=== PATIENT | female | born 1990 | race Caucasian/White ===

== ENCOUNTER 2018-09-12 20:04 | Emergency (ER) | payer OTHER ==
[2018-09-12] MEDS ORDERED: ONDANSETRON ODT 4 MG TAB (6 TAB/ER DISP) PO PRN (21:36)
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
[2018-09-12 22:10] VITALS: BP 129/81
== END 2018-09-12 22:10 | disposition home or self-care (01) ==
LOC: ER 20:04
DX: M54.2 Cervicalgia (principal); M25.512 Pain in left shoulder; R11.0 Nausea; V87.7XXA Person injured in collision between other specified motor vehicles (traffic), initial encounter
CPT/HCPCS: 99283

== ENCOUNTER 2018-09-13 17:18 | Emergency (ER) | payer OTHER ==
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
[2018-09-13 18:23] LABS: ABSOLUTE BASOPHILS # (AUTO) 0.1 10^3/uL (0.0-0.2); ABSOLUTE EOSINOPHILS # (AUTO) 0.1 10^3/uL (0.0-0.6); ABSOLUTE LYMPHOCYTES (AUTO) 2.3 10^3/uL (0.5-4.7); ABSOLUTE MONOCYTES (AUTO) 0.5 10^3/uL (0.1-1.4); ABSOLUTE NEUT (AUTO) 5.5 10^3/uL (1.7-8.2); BASOPHILS % (AUTO) 1.1 % (0-2); EOSINOPHILS % (AUTO) 1.6 % (0-6); HEMATOCRIT 39.9 % (36.0-47.0); HEMOGLOBIN 13.9 g/dL (12.0-15.5); LYMPHOCYTES % (AUTO) 26.6 % (13-45); MEAN CORPUSCULAR HEMOGLOBIN 32.2 pg (27.0-33.4); MEAN CORPUSCULAR HGB CONC 34.9 g/dL (32.0-36.0); MEAN CORPUSCULAR VOLUME 92 fl (80-97); MONOCYTES % (AUTO) 6.4 % (3-13); PLATELET COUNT 437 10^3/uL (150-450); RED BLOOD COUNT 4.33 10^6/uL (3.72-5.28); RED CELL DISTRIBUTION WIDTH 12.6 % (11.5-14.0); SEGMENTED NEUTROPHILS % (AUTO) 64.3 % (42-78); TOTAL CELLS COUNTED % (AUTO) 100 %; WHITE BLOOD COUNT 8.6 10^3/uL (4.0-10.5)
[2018-09-13 18:32] LABS: APPEARANCE,URINE SLIGHTLY-CLOUDY; BILIRUBIN,URINE NEGATIVE (NEGATIVE); COLOR,URINE YELLOW; GLUCOSE, URINE NEGATIVE (NEGATIVE); KETONES,URINE NEGATIVE (NEGATIVE); LEUKOCYTE ESTERASE,URINE SMALL (NEGATIVE); NITRITE,URINE NEGATIVE (NEGATIVE); PROTEIN,URINE NEGATIVE (NEGATIVE); URINE SPECIFIC GRAVITY 1.012; UROBILINOGEN,URINE NEGATIVE mg/dL (<2.0)
[2018-09-13] MEDS ORDERED: METOCLOPRAMIDE HCL INJ/PF 10 MG/2 ML SDV IV ONE (19:09)
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
--- NOTE | 2018-09-13 19:13 | RADIOLOGY REPORT (SQ) ---
EXAM DESCRIPTION: CT HEAD WITHOUT COMPLETED DATE/TIME: 09/13/2018 7:01 pm REASON FOR STUDY: facial numbness COMPARISON: None. TECHNIQUE: Axial images acquired through the brain without intravenous contrast. Images reviewed wi th bone, brain and subdural windows. Images stored on PACS. All CT scanners at this facility use dose modulation, iterative reconstruction, and/or weight based d osing when appropriate to reduce radiation dose to as low as reasonably achievable (ALARA). [facility]: Dose Right [facility]: CareDose [facility]: Dose Right [facility]: Teradose 4D [facility]: [place] RADIATION DOSE: CT Rad equipment meets quality standard of care and radiation dose reduction techniq ues were employed. CTDIvol: 53.2 mGy. DLP: 1044 mGy-cm. mGy. LIMITATIONS: None. FINDINGS: VENTRICLES: Normal size and contour. CEREBRUM: No masses. No hemorrhage. No midline shift. No evidence for acute infarction. Normal gra y/white matter differentiation. No areas of low density in the white matter. CEREBELLUM: No masses. No hemorrhage. No alteration of density. No evidence for acute infarction. EXTRAAXIAL SPACES: No fluid collections. No masses. ORBITS AND GLOBE: No intra- or extraconal masses. Normal contour of globe without masses. CALVARIUM: No fracture. PARANASAL SINUSES: No fluid or mucosal thickening. SOFT TISSUES: No mass or hematoma. OTHER: No other significant finding. IMPRESSION: No acute intracranial findings. EVIDENCE OF ACUTE STROKE: NO. COMMENT: Quality ID # [id number]: Final reports with documentation of one or more dose reduction techniques (e.g., Automated exposure control, adjustment of the mA and/or kV according to patient size, use of iterative reconstruction technique) TECHNICAL DOCUMENTATION: JOB ID: [id number] 2010 [employer]- All Rights Reserved Reading location - IP/workstation name: [employer]
[2018-09-13 19:47] VITALS: BP 120/86
--- NOTE | 2018-09-13 22:03 | EKG REPORT ---
SEVERITY:- NORMAL ECG - SINUS RHYTHM : Confirmed by: Sandy Mackey MD 13-Sep-2018 22:02:44
== END 2018-09-13 19:47 | disposition home or self-care (01) ==
LOC: ER 17:18
DX: R20.2 Paresthesia of skin (principal); R51 Headache; V49.40XA Driver injured in collision with unspecified motor vehicles in traffic accident, initial encounter; R20.0 Anesthesia of skin; R25.3 Fasciculation; R25.2 Cramp and spasm; Z88.6 Allergy status to analgesic agent
CPT/HCPCS: 93005; 99284; 96374; 36415; 85025; 81025; 81001; 70450; 93010; J2765

== ENCOUNTER 2020-05-26 15:03 | Emergency (ER) | payer OTHER ==
--- NOTE | 2020-05-26 16:04 | ER Document Report ---
ED Medical Screen (RME) - General Chief Complaint: Vag Bleeding, +preg <12wks Stated Complaint: ABDOMINAL PAIN, VAGINAL BLEEDING Time Seen by Provider: 05/26/20 16:02 Mode of Arrival: Wheelchair Information source: Patient Notes: 29-year-old female presented to ED for vaginal bleeding pelvic pain passing tissue. She states she took multiple home test and they were positive and then she started passing blood and tissue today. She has not had any visits for . She is 1 para 0. Last menstrual cycle was April 01. She states she does not smoke drink or use any illicit drugs. I have greeted and performed a rapid initial assessment of this patient. A comprehensive ED assessment and evaluation of the patient, analysis of test results and completion of medical decision making process will be conducted by an additional ED providers. TRAVEL OUTSIDE OF THE [place] IN LAST 30 DAYS: No - Related Data Allergies/Adverse Reactions: ibuprofen Allergy (Verified 09/13/18 17:19) Past Medical History Renal/ Medical History: Denies: Hx Peritoneal Dialysis Psychiatric Medical History: Reports: Hx Depression Past Surgical History: Reports: Hx Orthopedic Surgery - MRSA in knee Physical Exam - Vital signs Vitals: Temp Pulse Resp BP Pulse Ox 98.2 F 84 16 115/63 98 05/26/20 15:10 05/26/20 15:10 05/26/20 15:10 05/26/20 15:10 05/26/20 15:10 Course - Vital Signs Vital signs: Temp Pulse Resp BP Pulse Ox 98.2 F 84 16 115/63 98 05/26/20 15:10 05/26/20 15:10 05/26/20 15:10 05/26/20 15:10 05/26/20 15:10
[2020-05-26 16:35] LABS: ABSOLUTE BASOPHILS # (AUTO) 0.1 10^3/uL (0.0-0.2); ABSOLUTE EOSINOPHILS # (AUTO) 0.2 10^3/uL (0.0-0.6); ABSOLUTE LYMPHOCYTES (AUTO) 1.5 10^3/uL (0.5-4.7); ABSOLUTE MONOCYTES (AUTO) 0.6 10^3/uL (0.1-1.4); ABSOLUTE NEUT (AUTO) 5.3 10^3/uL (1.7-8.2); BASOPHILS % (AUTO) 1.2 % (0-2); EOSINOPHILS % (AUTO) 2.2 % (0-6); HEMATOCRIT 40.9 % (36.0-47.0); MEAN CORPUSCULAR HGB CONC 34.3 g/dL (32.0-36.0); MEAN CORPUSCULAR VOLUME 93 fl (80-97); MONOCYTES % (AUTO) 7.5 % (3-13); PLATELET COUNT 390 10^3/uL (150-450); RED BLOOD COUNT 4.38 10^6/uL (3.72-5.28); RED CELL DISTRIBUTION WIDTH 12.6 % (11.5-14.0); SEGMENTED NEUTROPHILS % (AUTO) 69.1 % (42-78); TOTAL CELLS COUNTED % (AUTO) 100 %; WHITE BLOOD COUNT 7.6 10^3/uL (4.0-10.5)
[2020-05-26 16:45] LABS: ALBUMIN 4.6 g/dL (3.5-5.0); ALKALINE PHOSPHATASE 133 U/L (38-126); ANION GAP 7 (5-19); ASPARTATE AMINO TRANSFERASE 26 U/L (14-36); BILIRUBIN,TOTAL 0.4 mg/dL (0.2-1.3); BLOOD UREA NITROGEN 13 mg/dL (7-20); CALCIUM 9.6 mg/dL (8.4-10.2); CARBON DIOXIDE 26 mmol/L (22-30); CHLORIDE 105 mmol/L (98-107); GLUCOSE 103 mg/dL (75-110); POTASSIUM 4.2 mmol/L (3.6-5.0); TOTAL PROTEIN 7.4 g/dL (6.3-8.2)
[2020-05-26 16:56] LABS: APPEARANCE,URINE CLEAR; BILIRUBIN,URINE NEGATIVE (NEGATIVE); COLOR,URINE RED; GLUCOSE, URINE >=500 mg/dL (NEGATIVE); KETONES,URINE NEGATIVE (NEGATIVE); LEUKOCYTE ESTERASE,URINE NEGATIVE (NEGATIVE); NITRITE,URINE NEGATIVE (NEGATIVE); PROTEIN,URINE NEGATIVE (NEGATIVE); URINE SPECIFIC GRAVITY 1.005; UROBILINOGEN,URINE NEGATIVE mg/dL (<2.0)
--- NOTE | 2020-05-26 18:06 | ER Document Report ---
ED GI/ - General Chief Complaint: Vag Bleeding, +preg <12wks Stated Complaint: ABDOMINAL PAIN, VAGINAL BLEEDING Time Seen by Provider: 05/26/20 16:02 Primary Care Provider: MENDY BRITT MD [ACTIVE STAFF] - Follow up tomorrow (Need repeat hCG in 48 hours) Mode of Arrival: Wheelchair Information source: Patient Notes: 29-year-old female with no previous medical problems presents to the emergency room complaining of abdominal cramping and bleeding that started last night. States she was passing a lot of clots later today.. States she only went through 2 sanitary napkins yesterday and is only lightly bleeding at this time. States she took Tylenol earlier today. She is a 1. States she did 2 home test yesterday that were positive. Menstrual cycle was April 01. Sexually active not use anything for control. No OB care. TRAVEL OUTSIDE OF THE [place] IN LAST 30 DAYS: No - Related Data Allergies/Adverse Reactions: ibuprofen Allergy (Verified 09/13/18 17:19) Past Medical History - General Information source: Patient - Social History Smoking Status: Never Smoker Frequency of alcohol use: None Drug Abuse: None Family History: Reviewed & Not Pertinent Renal/ Medical History: Denies: Hx Peritoneal Dialysis Psychiatric Medical History: Reports: Hx Depression Past Surgical History: Reports: Hx Orthopedic Surgery - MRSA in knee Review of Systems - Review of Systems Constitutional: No symptoms reported Cardiovascular: No symptoms reported Respiratory: No symptoms reported Gastrointestinal: Abdominal pain Female Genitourinary: , Vaginal bleeding Skin: No symptoms reported Hematologic/Lymphatic: No symptoms reported Neurological/Psychological: No symptoms reported -: Yes All other systems reviewed and negative Physical Exam - Vital signs Vitals: Temp Pulse Resp BP Pulse Ox 98.2 F 84 16 115/63 98 05/26/20 15:10 05/26/20 15:10 05/26/20 15:10 05/26/20 15:10 05/26/20 15:10 - General General appearance: Appears well, Alert In distress: Mild - HEENT Head: Normocephalic, Atraumatic Eyes: Normal Pupils: PERRL - Respiratory Respiratory status: No respiratory distress Chest status: Nontender Breath sounds: Normal Chest palpation: Normal - Cardiovascular Rhythm: Regular Heart sounds: Normal auscultation Murmur: No - Back Back: Normal, Nontender. No: CVA tenderness - Neurological Neuro grossly intact: Yes Cognition: Normal Orientation: AAOx4 [place] Coma Scale Eye Opening: Spontaneous [place] Coma Scale Verbal: Oriented Estefani Coma Scale Motor: Obeys Commands [place] Coma Scale Total: 15 Speech: Normal Motor strength normal: LUE, RUE, LLE, RLE Sensory: Normal - Skin Skin Temperature: Warm Skin Moisture: Dry Skin Color: Normal Course - Re-evaluation Re-evalutation: 05/26/20 19:00 Reviewed all lab and ultrasound results with patient and family. Counseled that there was no intrauterine seen on her ultrasound. Counseled her that she most likely has had a miscarriage. Counseled on need for repeat hCG in 48 hours to confirm. If unable to start appointment with the on-call [employer] counseled to the emergency room in 48 hours for repeat hCG. Patient was given on-call [employer]. She can take Tylenol as needed for pain. Patient was given strict return to the emergency room guidelines. Return for any new or worsening symptoms. All questions were answered. Patient verbalized understanding and agrees with plan of care. 05/26/20 19:02 - Vital Signs Vital signs: Temp Pulse Resp BP Pulse Ox 97.9 F 72 17 103/64 100 05/26/20 19:42 05/26/20 19:42 05/26/20 19:42 05/26/20 19:42 05/26/20 19:42 - Laboratory Result Diagrams: 05/26/20 16:11 05/26/20 16:11 Laboratory results interpreted by me: 05/26/20 05/26/20 16:11 16:11 Alkaline Phosphatase 133 H Beta HCG, Quant 678.56 H Urine Glucose (UA) >=500 H Urine Blood LARGE H - Diagnostic Test Radiology reviewed: Reports reviewed Discharge - Discharge Clinical Impression: Threatened miscarriage Condition: Stable Disposition: HOME, SELF-CARE Instructions: Threatened Miscarriage ([facility]) Additional Instructions: Take Tylenol as needed for pain. Repeat hCG in 48 hours. Can return to the emergency room if unable to get appointment with [facility]. Return sooner for any new or worsening symptoms. Forms: Return to Work Referrals: MENDY BRITT MD [ACTIVE STAFF] - Follow up tomorrow (Need repeat hCG in 48 hours)
--- NOTE | 2020-05-26 18:20 | RADIOLOGY REPORT (SQ) ---
EXAM DESCRIPTION: U/S OB TRANSVAG W/DOPPLER IMAGES COMPLETED DATE/TIME: 05/26/2020 5:34 pm REASON FOR STUDY: Pelvic pain vaginal bleeding possible miscarriage COMPARISON: None. TECHNIQUE: Transvaginal static and realtime grayscale images acquired of the pelvis. Additional anel cted spectral and color Doppler images recorded. All images stored on PACs. [facility] CLINICAL DATES: LMP 04/01/2020 7 weeks 6 days LIMITATIONS: None. FINDINGS: There is no intrauterine gestation at this time. UTERUS: No masses. No anomalies. Endometrium 6 mm. There is some fluid in the endometrial canal. CERVICAL LENGTH: 2.3 cm. Closed. RIGHT ADNEXA: Normal ovary with normal vascular flow. 2.8 x 1.8 x 2.1 cm. No adnexal free fluid. No adnexal masses. LEFT ADNEXA: Normal ovary with normal vascular flow. 3.5 x 2.3 x 2 cm. No adnexal free fluid. No adnexal masses. FREE FLUID: None. OTHER: No other significant finding. IMPRESSION: Miscarriage. There is no intrauterine gestation at this time. Follow-up as clinically indicated. TECHNICAL DOCUMENTATION: JOB ID: [id number] 2010 [employer]- All Rights Reserved Reading location - IP/workstation name: [email or web address]
[2020-05-26] MEDS ORDERED: ACETAMINOPHEN 325 MG TABLET PO ONE (18:57)
[2020-05-26 19:43] VITALS: BP 103/64
== END 2020-05-26 19:43 | disposition home or self-care (01) ==
LOC: ER 15:03
DX: O20.9 Hemorrhage in early pregnancy, unspecified (principal); O26.891 Other specified pregnancy related conditions, first trimester; R10.9 Unspecified abdominal pain; Z3A.01 Less than 8 weeks gestation of pregnancy
CPT/HCPCS: 36415; 76817; 80053; 81001; 84702; 85025; 86900; 86901; 87086; 93976; 99284

== ENCOUNTER 2020-05-29 13:39 | Emergency (ER) | payer SELFPAY ==
--- NOTE | 2020-05-29 14:09 | ER Document Report ---
ED Medical Screen (RME) - General Chief Complaint: OB Problem (<20wks) Stated Complaint: OB PROBLEM Time Seen by Provider: 05/29/20 14:03 Mode of Arrival: Ambulatory Information source: Patient Notes: HPI; 29-year-old female presents to the emergency room for follow-up secondary to possible miscarriage. Patient has been bleeding since last Saturday. She was seen here 3 days ago with a low quant and ultrasound inconclusive. Patient returns for her repeat quant however she is still bleeding and going through approximately 4 pads a day. States she feels weak. Decreased appetite. PE: Alert and oriented x3. Mild distress noted. Pale appearing lungs: Clear to auscultation without rales, rhonchi, wheezes. Heart: Regular rate rhythm without murmurs, rubs, gallops. Unable to do full assessment in triage. I have greeted and performed a rapid initial assessment of this patient. A comprehensive ED assessment and evaluation of the patient, analysis of test results and completion of the medical decision making process will be conducted by additional ED providers. I have specifically instructed the patient or family members with the patient to immediately return to any nursing staff should anything change in the patient's condition or with their chief complaint. TRAVEL OUTSIDE OF THE [place] IN LAST 30 DAYS: No - Related Data Allergies/Adverse Reactions: ibuprofen Allergy (Verified 09/13/18 17:19) Past Medical History Renal/ Medical History: Denies: Hx Peritoneal Dialysis Psychiatric Medical History: Reports: Hx Depression Past Surgical History: Reports: Hx Orthopedic Surgery - MRSA in knee Physical Exam - Vital signs Vitals: Temp Pulse Resp BP Pulse Ox 98.2 F 77 16 122/72 97 05/29/20 13:43 05/29/20 13:43 05/29/20 13:43 05/29/20 13:43 05/29/20 13:43 Course - Vital Signs Vital signs: Temp Pulse Resp BP Pulse Ox 98.2 F 77 16 122/72 97 05/29/20 13:43 05/29/20 13:43 05/29/20 13:43 05/29/20 13:43 05/29/20 13:43
[2020-05-29 14:48] LABS: ABSOLUTE BASOPHILS # (AUTO) 0.1 10^3/uL (0.0-0.2); ABSOLUTE EOSINOPHILS # (AUTO) 0.2 10^3/uL (0.0-0.6); ABSOLUTE LYMPHOCYTES (AUTO) 1.8 10^3/uL (0.5-4.7); ABSOLUTE MONOCYTES (AUTO) 0.5 10^3/uL (0.1-1.4); ABSOLUTE NEUT (AUTO) 3.4 10^3/uL (1.7-8.2); BASOPHILS % (AUTO) 1.3 % (0-2); EOSINOPHILS % (AUTO) 3.6 % (0-6); HEMATOCRIT 38.7 % (36.0-47.0); HEMOGLOBIN 13.5 g/dL (12.0-15.5); LYMPHOCYTES % (AUTO) 30.1 % (13-45); MEAN CORPUSCULAR HEMOGLOBIN 32.8 pg (27.0-33.4); MEAN CORPUSCULAR HGB CONC 34.8 g/dL (32.0-36.0); MEAN CORPUSCULAR VOLUME 94 fl (80-97); MONOCYTES % (AUTO) 8.5 % (3-13); PLATELET COUNT 381 10^3/uL (150-450); RED CELL DISTRIBUTION WIDTH 12.7 % (11.5-14.0); SEGMENTED NEUTROPHILS % (AUTO) 56.5 % (42-78); TOTAL CELLS COUNTED % (AUTO) 100 %
[2020-05-29 15:01] LABS: ALBUMIN 4.3 g/dL (3.5-5.0); ALKALINE PHOSPHATASE 122 U/L (38-126); ANION GAP 9 (5-19); ASPARTATE AMINO TRANSFERASE 28 U/L (14-36); BILIRUBIN,TOTAL 0.5 mg/dL (0.2-1.3); BLOOD UREA NITROGEN 9 mg/dL (7-20); CALCIUM 9.2 mg/dL (8.4-10.2); CARBON DIOXIDE 24 mmol/L (22-30); CHLORIDE 105 mmol/L (98-107); GLUCOSE 110 mg/dL (75-110); POTASSIUM 3.8 mmol/L (3.6-5.0); TOTAL PROTEIN 6.9 g/dL (6.3-8.2)
--- NOTE | 2020-05-29 16:08 | ER Document Report ---
ED GI/ - General Chief Complaint: OB Problem (<20wks) Stated Complaint: OB PROBLEM Time Seen by Provider: 05/29/20 14:03 Primary Care Provider: [facility] [Provider Group] - Follow up as needed Mode of Arrival: Ambulatory Notes: Patient is a 29-year-old female who presents the emergency department with a chief complaint of vaginal bleeding. Patient states that has continued to bleed after possibly having a miscarriage the other day. An ultrasound confirmed that the patient was having a miscarriage. Patient states that she stopped bleeding yesterday and then ended up passing large clots today. TRAVEL OUTSIDE OF THE [place] IN LAST 30 DAYS: No - Related Data Allergies/Adverse Reactions: ibuprofen Allergy (Verified 09/13/18 17:19) Past Medical History - General Information source: Patient - Social History Smoking Status: Never Smoker Frequency of alcohol use: None Drug Abuse: None Family History: Reviewed & Not Pertinent Renal/ Medical History: Denies: Hx Peritoneal Dialysis Psychiatric Medical History: Reports: Hx Depression Past Surgical History: Reports: Hx Orthopedic Surgery - MRSA in knee Review of Systems - Review of Systems Notes: REVIEW OF SYSTEMS: CONSTITUTIONAL : Denies recent illness. Denies recent unintentional weight loss. Denies fever, chills, or sweats. EENT: Denies eye, ear, throat, or mouth pain, discharge, or symptoms. Denies nasal or sinus congestion. CARDIOVASCULAR: Denies chest pain. RESPIRATORY: Denies shortness of breath, cough, congestion, difficulty breathing, or wheezing. GASTROINTESTINAL: Denies nausea, vomiting, and diarrhea. Denies abdominal pain. Denies constipation. GENITOURINARY: Denies difficulty urinating, burning, blood in urine, urgency or frequency. FEMALE GENITOURINARY: See HPI. MUSCULOSKELETAL: Denies neck and back pain. Denies joint pain or swelling. SKIN: Denies rash, itchiness, or lesions HEMATOLOGIC : Denies easy bruising or bleeding. LYMPHATIC: Denies swollen, painful, enlarged glands. NEUROLOGICAL: Denies no numbness or tingling denies weakness. Denies headache. Denies altered mental status. Denies alteration in speech. PSYCHIATRIC: Denies stress, anxiety, alteration in sleep patterns, or depression. All other systems reviewed and negative. Physical Exam - Vital signs Vitals: Temp Pulse Resp BP Pulse Ox 98.2 F 77 16 122/72 97 05/29/20 13:43 05/29/20 13:43 05/29/20 13:43 05/29/20 13:43 05/29/20 13:43 - Notes Notes: PHYSICAL EXAMINATION: GENERAL: Appears well, healthy, well-nourished, no acute distress. HEAD: Normocephalic, atraumatic. EYES: PERRL, conjunctiva normal, all extraocular movements intact, sclera nonicteric ENT: Moist mucous membranes. NECK: Supple, no noticeable swelling, redness, rash. Normal range of motion. LUNGS: Equal breath sounds bilaterally and clear to auscultation. No wheezes rales or rhonchi. CARDIOVASCULAR: S1-S2, regular rate, regular rhythm. Radial pulses 2+, normal. ABDOMEN: Normoactive bowel sounds. Soft, moderately tender mid lower abdomen. EXTREMITIES: Normal strength and range of motion, no pitting or edema. No cyanosis. NEUROLOGICAL: Moves all extremities upon command. Strength 5/5 in all extremities. PSYCH: Normal mood, normal affect. SKIN: Warm, dry. No rash, lesions, ulcerations noted. Normal skin turgor. Course - Re-evaluation Re-evalutation: 05/29/20 Hematology is unremarkable. Chemistries are also unremarkable. hCG dropped from 678 down to 177, consistent with a miscarriage noted on ultrasound 3 days ago. There were no retained products on ultrasound. Will place the patient on Tylenol with codeine to help with pain. Advised patient that she will continue to have some bleeding for the next couple of weeks weeks, as she miscarried. Advised her to follow-up with [facility] if she continues to bleed. Advised the patient to perform fundal massage to help with expelling any clots. Patient is O+. No indication for RhoGam. She is in agreement with this plan. Follow-up precautions were given. Verbal discharge instructions were given to the patient. They verbalized understanding. They are stable for discharge. - Vital Signs Vital signs: Temp Pulse Resp BP Pulse Ox 98.0 F 76 16 120/70 98 05/29/20 16:29 05/29/20 16:29 05/29/20 16:29 05/29/20 16:29 05/29/20 16:29 - Laboratory Result Diagrams: 05/29/20 14:15 05/29/20 14:15 Laboratory results interpreted by me: 05/29/20 14:15 Beta HCG, Quant 177.20 H Discharge - Discharge Clinical Impression: Miscarriage Condition: Stable Disposition: HOME, SELF-CARE Additional Instructions: You were seen today in the emergency department for vaginal bleeding. You ended up having a miscarriage. You can take Tylenol 3 to help you with your pain. If you take this medication, only take 650 mg of Tylenol. If you are not taking Tylenol 3, you can take 1000 mg every 6 hours. Follow-up with [facility] if you continue to bleed. Prescriptions: Acetaminophen with Codeine [Tylenol #3 Tablet] 1 each PO Q6HP PRN #10 tablet PRN Reason: Forms: Return to Work Referrals: [facility] [Provider Group] - Follow up as needed
[2020-05-29 16:30] VITALS: BP 120/70
== END 2020-05-29 16:30 | disposition home or self-care (01) ==
LOC: ER 13:39
DX: O03.9 Complete or unspecified spontaneous abortion without complication (principal)
CPT/HCPCS: 36415; 80053; 84702; 85025; 99284